=== PATIENT | male | born 2000 | race African-American/Black ===

== ENCOUNTER 2019-05-08 10:36 | Emergency (ER) | payer BC ==
[2019-05-08] MEDS ORDERED: Ibuprofen TAB* 800 MG PO ONE (12:48)
--- NOTE | 2019-05-08 13:04 | ED ---
HPI Chest Pain - HPI Summary HPI Summary: This patient is a 18 y/o male presenting to [facility] c/o chest pain since 929 today. Patient reports he woke up at 929 today with left sided chest pain that is nonradiating. He describes chest pain as a sharp pain. Patient notes his chest pain is not aggravated by deep breaths, however it is aggravated by arm movement. He denies shortness of breath, cough, nausea, vomiting, fever, chills. Denies any hx of cardiac disease. Denies any PMHx including HTN or DM. Patient denies FHx of ID at his age. Patient admits to smoking cigarettes and marijuana, as well as occasional alcohol use. Denies any other drug use. - History of Current Complaint Chief Complaint: EDChestPainROMI Time Seen by Provider: 05/08/19 12:40 Hx Obtained From: Patient Onset/Duration: Still Present Timing: Lasting Hours Current Severity: Moderate Pain Intensity: 7 Pain Scale Used: 0-10 Numeric Chest Pain Location: Left Anterior Chest Pain Radiates: No Character: Sharp/Stabbing - sharp Aggravating Factor(s): Movement Alleviating Factor(s): Nothing Associated Signs and Symptoms: Positive: Chest Pain. Negative: Shortness of Breath, Fever, Chills, Nausea, Cough, Vomiting - Allergy/Home Medications Allergies/Adverse Reactions: Allergies Allergy/AdvReac Type Severity Reaction Status Date / Time shellfish derived Allergy Swelling Verified 05/08/19 10:44 PMH/Surg Hx/FS Hx/Imm Hx Endocrine/Hematology History: Denies: Hx Diabetes Cardiovascular History: Denies: Hx Hypertension Infectious Disease History: No Infectious Disease History: Denies: Traveled Outside the [place] in Last 30 Days - Family History Known Family History: Negative: Cardiac Disease - Social History Alcohol Use: Occasionally Substance Use Type: Reports: Marijuana Smoking Status (MU): Light Every Day Tobacco Smoker Review of Systems Negative: Fever, Chills Positive: Chest Pain Negative: Shortness Of Breath, Cough Negative: Vomiting, Nausea Skin: Negative Neurological/Mental Status: Negative All Other Systems Reviewed And Are Negative: Yes Physical Exam - Summary Physical Exam Summary: VITAL SIGNS: Reviewed. GENERAL: Patient is a well-developed and nourished male who is lying comfortable in the stretcher. Patient is not in any acute respiratory distress. HEAD AND FACE: No signs of trauma. No ecchymosis, hematomas or skull depressions. No sinus tenderness. EYES: PERRLA, EOMI x 2, No injected conjunctiva, no nystagmus. EARS: Hearing grossly intact. Ear canals and tympanic membranes are within normal limits. MOUTH: Oropharynx within normal limits. NECK: Supple, trachea is midline, no adenopathy, no JVD, no carotid bruit, no c- spine tenderness, neck with full ROM. CHEST: Symmetric, reproducible chest pain. LUNGS: Clear to auscultation bilaterally. No wheezing or crackles. CVS: Regular rate and rhythm, S1 and S2 present, no murmurs or gallops appreciated. ABDOMEN: Soft, non-tender. No signs of distention. No rebound no guarding, and no masses palpated. Bowel sounds are normal. MSK: FROM in all major joints, no edema, no cyanosis or clubbing. NEURO: Alert and oriented x 3. No acute neurological deficits. Speech is normal and follows commands. SKIN: Dry and warm. Triage Information Reviewed: Yes Vital Signs On Initial Exam: Initial Vitals Temp Pulse Resp BP Pulse Ox 97.9 F 54 18 140/80 100 05/08/19 10:41 05/08/19 10:41 05/08/19 10:41 05/08/19 10:41 05/08/19 10:41 Vital Signs Reviewed: Yes Procedures - Sedation Patient Received Moderate/Deep Sedation with Procedure: No Diagnostics - Vital Signs Vital Signs Temp Pulse Resp BP Pulse Ox 05/08/19 10:41 97.9 F 54 18 140/80 100 - Laboratory Result Diagrams: 05/08/19 12:55 05/08/19 12:55 Lab Statement: Any lab studies that have been ordered have been reviewed, and results considered in the medical decision making process. - Radiology Chest XR Radiology Interpretation Completed By: Radiologist Summary of Radiographic Findings: IMPRESSION: No active cardiopulmonary disease is noted. Dr. Champagne has reviewed this report. - EKG 10:43 Cardiac Rate: NL - at 60 bpm EKG Rhythm: Sinus Rhythm Summary of EKG Findings: EKG at 1043 shows normal sinus rhythm at a rate of 60 bpm. T wave inversion in lead II. This EKG was interpreted and reviewed by ED physician. Chest Pain Course/Dx - Course Assessment/Plan: This patient is a 18 y/o male presenting to [facility] c/o chest pain since 929 today. Patient reports he woke up at 0930 today with left sided chest pain that is nonradiating. He describes chest pain as a sharp pain. Patient notes his chest pain is not aggravated by deep breaths, however it is aggravated by arm movement. He denies shortness of breath, cough, nausea, vomiting, fever, chills. Denies any hx of cardiac disease. Denies any PMHx including HTN or DM. Patient denies FHx of ID at his age. Patient admits to smoking cigarettes and marijuana, as well as occasional alcohol use. Denies any other drug use. Blood test results without any significant abnormality. EKG shows a normal sinus rhythm without any ST elevation but there is a T-wave inversion in lead II. Chest x-ray impression: No active cardiopulmonary disease. In the ED course the patient was given ibuprofen and the symptoms resolved. Patient reports that all symptoms have resolved. Patient Heart score is: 1 therefore, low suspicion for CAD. Patient is not hypoxic or tachycardic. Wells criteria is 0, therefore, no suspicion for PE. Patient has no abdominal bruit thus no suspicion for AAA. Patients pain does not radiate to the back and pain has resolved thus low suspicion for aortic dissection. I discussed all the findings and test results with the patient. Patient was instructed to return to the emergency room immediately if any of the symptoms return or worsen. Patient understands and agrees. Plan of care was discussed with the patient and patient understands and agrees. All questions were answered at patient satisfaction. There were no further complaints or concerns. Physical exam before discharge: CVS: S1 and S2 present. No murmurs appreciated. Abdominal exam before discharge: Soft, non-tender. No signs of distention. No rebound no guarding, and no masses palpated. Bowel sounds are normal. Patient is alert and oriented x 3. Patient is hemodynamically stable. - Diagnoses Provider Diagnoses: Chest pain Discharge ED - Sign-Out/Discharge Documenting (check all that apply): Patient Departure - Discharge home - Discharge Plan Condition: Stable Disposition: HOME Patient Education Materials: Chest Pain (ED) Referrals: [facility] [Outside] Additional Instructions: FOLLOW UP WITH YOUR PRIMARY CARE PROVIDER IN 2-3 DAYS. RETURN TO THE EMERGENCY DEPARTMENT FOR ANY WORSENING OR NEW SYMPTOMS. - Billing Disposition and Condition Condition: STABLE Disposition: Home - Attestation Statements Document Initiated by Elidiae: Yes Documenting Scribe: Tiesha Jaimes Provider For Whom Scribe is Documenting (Include Credential): Gerardo Champagne MD Scribe Attestation: I, Tiesha Jaimes, scribed for Gerardo Champagne MD on 05/10/19 at 0755. Scribe Documentation Reviewed: Yes Provider Attestation: The documentation as recorded by the [email or web address] accurately reflects the service I personally performed and the decisions made by me, Gerardo Champagne MD Status of Scribe Document: Viewed
[2019-05-08 13:05] LABS: ABS Basophils 0.1 10^3/ul (0-0.2); ABS Eosinophils 0.2 10^3/ul (0-0.6); ABS Lymphocytes 1.6 10^3/ul (1.0-4.8); ABS Monocytes 0.8 10^3/ul (0-0.8); Eosinophil % 1.6 %; Hematocrit 43 % (42-52); Hemoglobin 14.7 g/dL (14.0-18.0); Lymphocyte % 16.8 %; Mean Corpuscular HGB Conc 34 g/dL (31-36); Mean Corpuscular Hemoglobin 32 pg (27-31); Mean Corpuscular Volume 93 fL (80-94); Mean Platelet Volume 8.4 fL (7.4-10.4); Platelet Count 181 10^3/uL (150-450); Red Blood Count 4.63 10^6 /uL (4.18-5.48); Red Cell Distribution Width 13 % (10-15); White Blood Count 9.7 10^3/uL (3.5-10.8)
[2019-05-08 13:20] LABS: Albumin 4.5 g/dL (3.2-5.2); Albumin/Globulin Ratio 1.6 (1-3); BUN/Creatinine Ratio 10.1 (8-20); Calcium 9.6 mg/dL (8.6-10.3); EGFR African American 117.8 (>60); EGFR Non-African American 97.4 (>60); Globulin 2.8 g/dL (2-4); Potassium 4.2 mmol/L (3.5-5.0); Total Bilirubin 0.7 mg/dL (0.2-1.0); Total Protein 7.3 g/dL (6.4-8.9)
[2019-05-08 14:06] VITALS: BP 149/81
== END 2019-05-08 14:04 | disposition home or self-care (01) ==
LOC: ED 10:36
DX: R07.89 Other chest pain (principal); Z91.013 Allergy to seafood; F17.200 Nicotine dependence, unspecified, uncomplicated
CPT/HCPCS: 36415; 71046; 80053; 83605; 84484; 85025; 93005; 96365; 99282; 99283; A9270-GY